=== PATIENT | female | born 1980 | race Caucasian/White ===

== ENCOUNTER 2022-01-29 06:43 | Emergency (ER) | payer MEDICAID ==
[~2022-01-29] VITALS: Ht 175.3 cm; Wt 84.0 kg
[2022-01-29] MEDS ORDERED: IBUPROFEN 400MG TABLET PO ONE (09:00)
[2022-01-29] MEDS ORDERED: ACETAMINOPHEN 325MG TABLET PO ONE (09:00)
[2022-01-29] MEDS ORDERED: TOPUD PO (09:40)
[2022-01-29] MEDS ORDERED: LIDO1ADH23 TP (09:40)
[2022-01-29] MEDS ORDERED: IBUP-2028 MT (09:40)
[2022-01-29 10:03] VITALS: BP 124/82
== END 2022-01-29 10:04 | disposition home or self-care (01) ==
LOC: ER 07:14
DX: M79.602 Pain in left arm (principal); R20.0 Anesthesia of skin; J45.909 Unspecified asthma, uncomplicated; Z79.899 Other long term (current) drug therapy
CPT/HCPCS: 71045; 93971; 99284